=== PATIENT | male | born 1980 | race Caucasian/White ===

== ENCOUNTER → 2016-09-06 | Outpatient (CLI) | payer MEDICAID ==
--- NOTE | 2016-09-06 09:51 | MR ---
EXAMINATION TYPE: MR ankle RT wo con DATE OF EXAM: 09/06/2016 8:34 AM COMPARISON: NONE HISTORY: Right heel pain Standard multiplanar, multisequence MRI departmental protocol Multiplanar, multisequence images of the right ankle were acquired. Diffusion weighted imaging was pe rformed. FINDINGS: A vitamin E marker is placed at level of palpable abnormality medial aspect of the posterio r calcaneus on axial image 8 and sagittal image 5. No suspicious solid or cystic mass or fluid collec tion is identified at this level along the course of the tarsal vessels. No suspicious soft tissue sw elling is seen. There is tiny amount of fluid adjacent to the posterior tibial tendon superior to thi s on axial image 25 at level of the distal tibia epiphysis. Flexor tendons along posterior medial asp ect of ankle are intact. There is small tibiotalar joint effusion, nonspecific finding posteriorly. The peroneal brevis and longus tendons are intact. Some increased signal in the distal brevis tendon at level of the anterior calcaneus is seen. There is some focal increased signal in the longus tendon posterior to the lateral malleolus suggestive of tendinosis at both levels. Extensor tendons anteriorly are intact. Anterior tibiofibular and knee anterior talofibular ligaments are intact. Bone marrow signal intensity is maintained. Distal Achilles tendon is intact. Visualized portion plantar fascia is felt within normal limits. Normal sinus tarsi fat is seen. IMPRESSION: No significant finding is seen to account for patient's symptoms of medial posterior pain
== END | disposition home or self-care (01) ==
LOC: RADMRIMAIN 07:33
PROVIDERS: ATTEND Orthopaedic Surgery
DX: M84.374A Stress fracture, right foot, initial encounter for fracture (principal); S92.001A Unspecified fracture of right calcaneus, initial encounter for closed fracture

== ENCOUNTER 2016-12-02 09:48 | Observation (INO) | payer MEDICAID ==
[~2016-12-02 09:48] MED LIST: ACETAMINOPHEN TAB 500 MG TAB PO ONE; DEXAMETHASONE SOD PHOSPHATE 10 MG/ML 1 ML VIAL IV ONE; DEXAMETHASONE SOD PHOSPHATE 4 MG/ML 1 ML VIAL IV ONE; FAMOTIDINE 20 MG/2 ML VIAL IV ONE; LACTATED RINGERS 1,000 ML IV SCH; ONDANSETRON 4 MG/2 ML VIAL IVP ONE; ceFAZolin 2 GM in SODIUM CHLORIDE 0.9% 100 ML IVPB ONE
[2016-12-02] MEDS ORDERED: LIDOCAINE 1% 20 ML VIAL (10MG/ML) FOR IV START INTRADERMA ONE (11:12)
[2016-12-02] MEDS: OXYMETAZOLINE 0.05% NASL SPRAY 15 ML NASAL ONE ×4 (11:14→11:38)
[2016-12-02] MEDS ORDERED: DEXAMETHASONE SOD PHOS (MDV) 100 MG/10 ML VIAL ONE (12:37)
[2016-12-02] MEDS ORDERED: MIDAZOLAM 2 MG/2 ML VIAL ONE (12:37)
[2016-12-02] MEDS ORDERED: LIDOCAINE 1% INJ 10MG/ML (20 ML MDV) ONE (12:37)
[2016-12-02] MEDS ORDERED: fentaNYL (PF) 50 MCG/ML 2 ML AMP ONE (12:37)
[2016-12-02] MEDS ORDERED: PROPOFOL 10 MG/ML 20 ML VIAL IV ONE (12:37)
[2016-12-02] MEDS ORDERED: SUCCINYLCHOLINE CHLORIDE 100 MG/5 ML SYR IV ONE (12:37)
[2016-12-02] MEDS ORDERED: LIDOCAINE 1%-EPI 1:100,000 20 ML VIAL SUBMUCOSAL ONE ×2 (13:29)
[2016-12-02] MEDS ORDERED: BUPIVACAIN-EPI 0.5%-1:200,000 30 ML VIAL SQ ONE ×2 (13:29)
[2016-12-02] MEDS ORDERED: METOCLOPRAMIDE 5 MG/ML 2 ML VIAL IVP ONE (14:36)
[2016-12-02] MEDS ORDERED: PROMETHAZINE INJ 25 MG/ML 1 ML VIAL IM PRN (14:36)
[2016-12-02] MEDS ORDERED: LACTATED RINGERS 1,000 ML IV ONE (15:15)
[2016-12-02 16:02] VITALS: BMI 24.3
--- NOTE | 2016-12-02 16:07 | P.OP ---
Date of Procedure: 12/02/16 Preoperative Diagnosis: Deviated nasal septum to the left, severe Bilateral inferior nasal turbinate hypertrophy obstructive Obstructive sleep apnea syndrome Tonsillar hypertrophy Postoperative Diagnosis: Same Procedure(s) Performed: Uvulopalatopharyngoplasty Tonsillectomy Septoplasty Bilateral outfracture compression and submucosal resection of the inferior turbinates Implants: Anesthesia: CHERIE Surgeon: Arsenio Leal Estimated Blood Loss (ml): 20 Pathology: other (Sinonasal and uvula and tonsils) Condition: stable Disposition: PACU Indications for Procedure: Patient was diagnosed as having obstructive sleep apnea syndrome. Airway obstruction was both nasal and soft palate. The base of the tongue do not see any obstructive issues. Patient was totally intolerant to CPAP upon several trials. Patient wished to undergo surgery. All risks, benefits, and alternative therapies were discussed in detail. Consent was obtained and all questions were answered. Operative Findings: Patient is severe left septal deviation with large obstructive inferior turbinates. Tonsils were enlarged and the uvula and soft palate was quite long and redundant. Description of Procedure: This patient was taken to the operative room and placed in the supine position. A general inhalation anesthetic was administered to the patient and subsequently intubated with a cuffed endotracheal tube by the department of anesthesia with a functioning IV line in place. The patient was monitored through the entire case by the department of anesthesia. Prep medication was administered Attention was paid to the nose where the septum and inferior turbinates were injected with lidocaine 1% with epinephrine 1 100,000. Approximately 10 minutes were allowed wait for full vasoconstrictive effects to take place. At this time, a caudal incision was made over the caudal portion of the left septum. This was made down to the mucoperichondrium were a mucoperichondrial flap was developed to the extent of visualization on the left. A crossover incision was made with for the mucoperichondrial flap development to the extent of visualization on the contralateral side. With use of several crosshatching incisions and removal of redundant strips of septal cartilage the septum was straightened and placed back in position. The septum was perfectly straight and the incision was closed with a 4 rapid Vicryl. A quilting stitch was used to reapproximate the septal flaps. The septum was sutured fixated to the vomer area and groove. In the incision was closed with 40 rapid Vicryl. Attention was then paid to the inferior turbinates which were entered anteriorly with the use of a microdebrider utilizing a 2 mm blade. We entered the inferior turbinates and we remove bone and submucosal elements from the inferior turbinates bilaterally. After submucosal resection was performed with removal of bone and submucosal elements ; the inferior turbinates were outfractured and compressed with use of a in3Depth nasal elevator. Excellent airway was obtained.. Murocel sponge packs were placed and will be removed tomorrow. Attention was then paid to the mouth where a McIvor mouthgag was inserted into the patient's mouth with care to avoid any trauma to the lips, teeth, gums, or tongue. The mouth was opened and tongue was depressed and the soft palate was measured. The tonsils were grasped with an Allis forceps and brought medially. The tonsils were removed with use of a submucosal dissection utilizing a a Coblation hand wand. Excellent hemostasis was obtained. Hemostasis was spontaneous. Examination reveals no further bleeding. The uvula was extremely long and the soft palate was redundant. We removed the anterior face of the uvula and we remove the anterior inferior margin of the mucosa the soft palate. We sutured the posterior margin of the soft palate to the anterior portion of the soft palate with care to avoid any excessive soft palate resection. We measured the soft palate to prevent any velopharyngeal insufficiency. The soft palate looked excellent and after the uvulectomy and the lateral pharyngeal mucosa was removed in the usual fashion, the incision was closed with a 4 rapid Vicryl. Excellent approximation was obtained. Excellent results were obtained. The patient was taken to postanesthesia recovery in excellent condition The patient will follow up with me in one week as an outpatient.
[2016-12-02] MEDS ORDERED: oxyCODONE-APAP 5-325MG 1 EACH TAB PO PRN (16:08)
[2016-12-02] MEDS ORDERED: ACETAMINOPHEN TAB 500 MG TAB PO PRN (16:08)
[2016-12-02] MEDS: HYDROmorphone 1 MG/ML 1 ML SYRINGE IVP PRN ×2 (16:25→20:01)
[2016-12-02] MEDS: oxyCODONE-APAP 5-325MG 1 EACH TAB PO PRN (17:24)
[2016-12-02] MEDS: methylPREDNISolone SOD SUCCI 125 MG/2 ML VIAL IV SCH (17:24)
[2016-12-02 19:15] VITALS: RESP 16
[2016-12-02] MEDS: HYDROmorphone 1 MG/ML 1 ML SYRINGE IM PRN (20:00)
[2016-12-02] MEDS: DEXTROSE 5%-LACTATED RINGERS 1,000 ML IV SCH (20:07)
[2016-12-03] MEDS: HYDROmorphone 1 MG/ML 1 ML SYRINGE IM PRN ×3 (00:10→08:19)
--- NOTE | 2016-12-03 07:06 | P.PN ---
Subjective Principal diagnosis: Status post surgery This patient has done well during the evening. I removed his bilateral nasal packs this morning and is able to breathe through his nose. His pain is variable but is well controlled currently. We were anticipating discharge this morning but we decided to discharge him later this afternoon. Objective - Vital Signs Vital signs: Vital Signs Temp 98.4 F 12/03/16 02:23 Pulse 90 12/03/16 02:23 Resp 16 12/03/16 04:00 BP 132/74 12/03/16 02:23 Pulse Ox 95 12/03/16 02:23 Intake & Output 12/02/16 12/03/16 12/03/16 18:59 06:59 18:59 Intake Total 1625 720 Output Total 20 Balance 1605 720 Weight 70.307 kg Intake: IV 1125 Intake, IV Titration 200 720 Amount Dextrose 5%-Lactated 720 Ringers 1,000 ml @ 60 mls /hr IV .[id number] ROBERT Rx#: [id number] Lactated Ringers 1,000 ml 200 As IV .STK-MED ONE Rx#: [id number] Oral 300 Output: Estimated Blood Loss 20 Other: Voiding Method Toilet Toilet # Voids 2 - Constitutional General appearance: Present: average body habitus - EENT EENT Comment(s): Head and neck examination reveals the nose is now opened at the packs is had been removed. Throats feeling well incision excluded Eyes: Present: PERRLA ENT: Absent: thrush - Neck Neck: Present: normal ROM. Absent: lymphadenopathy Assessment and Plan (1) Post-operative pain Status: Acute (2) Obstructive sleep apnea syndrome in adult Status: Acute Plan: This patient is doing well after surgery we will keep him until this afternoon to continue medical therapy and control of his pain. We will increase his diet to a soft diet. Patient has my cell phone number and office number for contact if there is any problems he should call me. 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 Time with Patient: Greater than 30
--- NOTE | 2016-12-03 07:08 | P.DS ---
Providers Date of admission: 12/02/16 22:45 Expected date of discharge: 12/03/16 Attending physician: Arsenio Leal Consults: None Primary care physician: Dolly Edwards - Discharge Diagnosis(es) (1) Post-operative pain Current Visit: Yes Status: Acute Priority: Medium (2) Obstructive sleep apnea syndrome in adult Current Visit: Yes Status: Acute Priority: Medium Hospital Course: This patient has done well while admitted. He's required IV Dilaudid for pain control but is doing better this morning. We will convert him to oral medication. Anticipate discharge around 4 PM Pertinent Studies: None Procedures: Sleep apnea surgery, uvulopalatopharyngoplasty, tonsillectomy, septoplasty, turbinate surgery Patient Condition at Discharge: Good Plan - Discharge Summary New Discharge Prescriptions: New Amoxicillin 500 mg PO Q8HR #300 ml Famotidine [Pepcid] 40 mg PO BID 30 Days Hydrocodone/Acetaminophen [[place] 5-325] 1 - 2 each PO Q6HR PRN #50 tab PRN Reason: Pain Lidocaine Viscous [Xylocaine Viscous 2%] 5 ml PO RT-Q1H PRN #300 ml PRN Reason: Pain predniSONE 20 mg PO DIRECTED #15 tab No Action Escitalopram [Lexapro] 10 mg PO QAM Zolpidem Tartrate [Ambien] 10 mg PO HS Omeprazole [PriLOSEC] 20 mg PO DAILY PRN PRN Reason: reflux Discharge Medication List Escitalopram [Lexapro] 10 mg PO QAM 11/29/16 [History] Omeprazole [PriLOSEC] 20 mg PO DAILY PRN 11/29/16 [History] Zolpidem Tartrate [Ambien] 10 mg PO HS 11/29/16 [History] Amoxicillin 500 mg PO Q8HR #300 ml 12/02/16 [Rx] Famotidine [Pepcid] 40 mg PO BID 30 Days 12/02/16 [Rx] Hydrocodone/Acetaminophen [[place] 5-325] 1 - 2 each PO Q6HR PRN #50 tab 12/02/16 [Rx] Lidocaine Viscous [Xylocaine Viscous 2%] 5 ml PO RT-Q1H PRN #300 ml 12/02/16 [Rx ] predniSONE 20 mg PO DIRECTED #15 tab 12/02/16 [Rx] Follow up Appointment(s)/Referral(s): Arsenio Leal DO [Doctor of Osteopathic Medicine] - 1 Week Patient Instructions/Handouts: *Surgery [facility] - ([facility]) Uvulopalatopharyngoplasty Post-Op Instructions Activity/Diet/Wound Care/Special Instructions: Rest with head elevated No crunchy foods for 3 weeks No heavy lifting or bending Gargle with ice water for pain control and/or if any bleeding is noted. If bleeding would be persistent a trip to the emergency room is needed
[2016-12-03] MEDS ORDERED: SODIUM CHLORIDE 0.65% NASAL SPRAY 44 ML BTL NASAL PRN (07:10)
[2016-12-03 07:53] VITALS: BP 132/78; PULSE 92; TEMP 97.6
[2016-12-03] MEDS: methylPREDNISolone SOD SUCCI 125 MG/2 ML VIAL IV SCH ×3 (08:15→12:43)
[2016-12-03] MEDS: OXYMETAZOLINE 0.05% NASL SPRAY 15 ML NASAL SCH ×2 (08:24→12:43)
[2016-12-03] MEDS: DEXTROSE 5%-LACTATED RINGERS 1,000 ML IV SCH (11:14)
[2016-12-03] MEDS: oxyCODONE-APAP 5-325MG 1 EACH TAB PO PRN (11:54)
== END 2016-12-03 15:53 | disposition home or self-care (01) ==
LOC: OR 09:48 → 3SUR 14:37 → OR 22:44 → 3SUR 22:45
PROVIDERS: ADMIT Otolaryngology; ATTEND Otolaryngology
DX: G89.18 Other acute postprocedural pain (principal); J34.2 Deviated nasal septum; J34.3 Hypertrophy of nasal turbinates; G47.33 Obstructive sleep apnea (adult) (pediatric); J35.1 Hypertrophy of tonsils; K21.9 Gastro-esophageal reflux disease without esophagitis; F32.9 Major depressive disorder, single episode, unspecified; Z79.899 Other long term (current) drug therapy
CPT/HCPCS: 42145; 42999; 30520; 30930; 96376; 96372; 96374; 94760; 94762 ×2; 88304; 88300; 88302; G0378 ×2; J2250; J1100 ×2; J2930 ×2; J0690; J2405; J2001; J3010; J1170 ×2; J0330; J2704

== ENCOUNTER → 2017-06-22 | Outpatient (CLI) | payer MEDICAID ==
--- NOTE | 2017-06-22 09:28 | ECHOF ---
Referral Reason:R07.89 Chest pain MEASUREMENTS -------- HEIGHT: 172.7 cm WEIGHT: 70.3 kg BP: RVIDd: 3.0 cm (< 3.3) IVSd: 0.8 cm (0.6 - 1.1) LVIDd: 4.4 cm (3.9 - 5.3) LVPWd: 1.0 cm (0.6 - 1.1) IVSs: 1.4 cm LVIDs: 2.3 cm LVPWs: 1.6 cm LAESV Index (A-L): 20.27 ml/m Ao Diam: 3.2 cm (2.0 - 3.7) AV Cusp: 2.2 cm (1.5 - 2.6) LA Diam: 2.9 cm (2.7 - 3.8) MV E Jorge A: 0.96 m/s MV DecT: 195 ms MV A Jorge A: 0.46 m/s MV E/A Ratio: 2.10 RAP: 5.00 mmHg RVSP: 18.14 mmHg FINDINGS -------- Sinus rhythm. This was a technically good study. The left ventricular size is normal. Left ventricular wall thickness is normal. Overall left vent ricular systolic function is normal with, an EF between 60 - 65 %. The right ventricle is normal in size and function. Normal LA size by volume 22+/-6 ml/m2. The right atrium is normal in size. The aortic valve is trileaflet, and appears structurally normal. No aortic stenosis or regurgitation. The mitral valve is normal. There is trace mitral regurgitation. Trace tricuspid regurgitation present. Right ventricular systolic pressure is normal at < 35 mmHg. There is no evidence of pulmonary hypertension. Trace/mild (physiologic) pulmonic regurgitation. The aortic root size is normal. Normal inferior vena cava with normal inspiratory collapse consistent with estimated right atrial pre ssure of 5 mmHg. The pericardium is normal. There is no pericardial effusion. CONCLUSIONS -------- 1. Sinus rhythm. 2. This was a technically good study. 3. The left ventricular size is normal. 4. Left ventricular wall thickness is normal. 5. Overall left ventricular systolic function is normal with, an EF between 60 - 65 %. 6. Normal LA size by volume 22+/-6 ml/m2. 7. The aortic valve is trileaflet, and appears structurally normal. No aortic stenosis or regurgitati on. 8. There is trace mitral regurgitation. 9. Trace tricuspid regurgitation present. 10. Right ventricular systolic pressure is normal at < 35 mmHg. 11. There is no evidence of pulmonary hypertension. 12. Trace/mild (physiologic) pulmonic regurgitation. 13. The aortic root size is normal. 14. There is no pericardial effusion. WORKDAY CONSULTANT: Francesco De RDCS
== END | disposition home or self-care (01) ==
LOC: RADECHMAIN 08:15
PROVIDERS: ATTEND Family Medicine
DX: R07.89 Other chest pain (principal)
CPT/HCPCS: 93306

== ENCOUNTER → 2017-07-06 | Outpatient (CLI) | payer MEDICAID ==
--- NOTE | 2017-07-06 19:11 | EST ---
EXERCISE STRESS DATE OF SERVICE: 07/06/2017 AGE: 37 SEX: Male HT: WT: 155 PROTOCOL: Cali. STAGE: 3 DURATION OF EXERCISE: 9:00 HEART RATE REST: 84 BLOOD PRESSURE REST: 132/76 MAXIMUM HEART RATE ACHIEVED: 164 MAXIMUM BLOOD PRESSURE: 174/78 85% MPHR: 156 100% MPHR: 183 METS: 10.1 INDICATIONS: Chest pain. CLINICAL INFORMATION: STRESS DATA: Pre-testing physical examination showed a heart rate of 84, pressure 132/76 mmHg. Baseline EKG showed sinus mechanism. The patient exercised on Cali protocol for a total of 9 minutes and achieved 10.1 METS. Maximum heart rate was 164, which is about 90% of maximum predicted heart rate. Maximum blood pressure was 174/78 mmHg. Clinically the patient did not have any symptoms of chest pain or discomfort during the testing or in recovery and the EKG did not show any significant ST or T-wave abnormalities consistent with ischemia. CONCLUSION: 1. Excellent exercise capacity. 2. Normal EKG in response to exercise. 3. Essentially normal exercise treadmill stress test for the patient. MMODL / IJN: [id number] /
== END | disposition home or self-care (01) ==
LOC: RADNMMAIN 11:04
PROVIDERS: ATTEND Family Medicine
DX: R07.89 Other chest pain (principal)
CPT/HCPCS: 93017

== ENCOUNTER → 2020-04-08 | Outpatient (CLI) | payer BC ==
--- NOTE | 2020-04-08 12:12 | XR ---
EXAMINATION TYPE: XR wrist complete LT DATE OF EXAM: 04/08/2020 CLINICAL HISTORY: Fall injury with pain. TECHNIQUE: Frontal, lateral, scaphoid, and oblique images of the left wrist are obtained. COMPARISON: None FINDINGS: There is no acute fracture/dislocation evident in the left wrist. The joint spaces in the left wrist appear within normal limits. The overlying soft tissue appears unremarkable. IMPRESSION: There is no acute fracture or dislocation in the left wrist.
== END | disposition home or self-care (01) ==
LOC: RADXRMAIN 10:33
PROVIDERS: ATTEND Family Medicine
DX: S69.92XA Unspecified injury of left wrist, hand and finger(s), initial encounter (principal)

== ENCOUNTER → 2023-08-17 | Outpatient (CLI) | payer OTHER ==
--- NOTE | 2023-08-17 11:17 | XR ---
EXAMINATION TYPE: XR chest 2V DATE OF EXAM: 08/17/2023 COMPARISON: NONE HISTORY: Chest pain TECHNIQUE: Frontal and lateral views of the chest are obtained. FINDINGS: There is no focal air space opacity. No evidence for pneumothorax. No pleural effusion. The cardiac silhouette size is within normal limits. The osseous structures are grossly intact. IMPRESSION: 1. No acute cardiopulmonary process.
== END | disposition home or self-care (01) ==
LOC: RADXRMAIN 10:59
PROVIDERS: ATTEND Family Medicine
DX: Z00.00 Encounter for general adult medical examination without abnormal findings (principal); R07.9 Chest pain, unspecified
CPT/HCPCS: 71046